=== PATIENT | male | born 1990 | race Hispanic/Latino ===

== ENCOUNTER 2019-07-02 22:18 | Emergency (ER) | payer SELFPAY ==
[~2019-07-02] VITALS: Ht 165.1 cm; Wt 107.2 kg
[~2019-07-02 22:18] MED LIST: CEPHALEXIN500 M1 PO; KEFLEX500 M1 PO; MOTRIN400 MG PO; NO HOME MEDS; ONDANSETRON4 MG PO; OXYCODONE5 MG PO
[2019-07-02 23:02] LABS: HEMATOCRIT 42.6 % (39.0-50.0); HEMOGLOBIN 14.7 g/dl (14.0-18.0); IMMATURE GRANULOCYTES 0.3 % (0.0-5.0); MEAN CELL VOLUME 88.6 fL CALC (80.0-100.0); MEAN CORPUSCULAR HGB 30.6 pG CALC (26.0-32.0); MEAN CORPUSCULAR HGB CONC 34.5 g/L CALC (32.0-36.0); NEUT# 3.15 thou/uL (1.82-7.42); RED BLOOD COUNT 4.81 mill/uL (4.70-6.10); RED CELL DISTRI WIDTH 12.5 % (11.5-15.5)
[2019-07-02 23:03] LABS: URINE BILIRUBIN - DIPSTICK NEGATIVE (NEGATIVE); URINE BLOOD DIPSTICK NEGATIVE (NEGATIVE); URINE COLOR YELLOW; URINE GLUCOSE - DIPSTICK NEGATIVE (NEGATIVE); URINE KETONE NEGATIVE (NEGATIVE); URINE LEUK ESTERASE NEGATIVE (NEGATIVE); URINE NITRITE - DIPSTICK NEGATIVE (Negative); URINE PROTEIN - DIPSTICK NEGATIVE (NEG-TRACE); URINE UROBILINOGEN - DIPSTICK 0.2 E.U./dL (0.2)
[2019-07-02 23:21] LABS: ALBUMIN 4.8 g/dL (3.2-5.0); ALKALINE PHOSPHATASE 61 u/l (38-126); AMYLASE 61 u/l (30-110); ANION GAP 14 (6-22 (CALC)); BILIRUBIN, TOTAL 0.8 mg/dL (0.0-1.4); BUN 19 mg/dL (9-20); BUN/CREATININE RATIO 21 (12-20 (CALC)); CARBON DIOXIDE 27 mmol/l (22-30); CHLORIDE 102 mmol/l (95-108); CREATININE 0.9 mg/dL (0.7-1.3); GFR > 60 ML/MIN (>=60 (CALC)); GFR FOR AFR.AMER. > 60 ML/MIN (>=60 (CALC)); LIPASE 176 u/l (23-300); POTASSIUM 3.9 mmol/l (3.5-5.1); SGOT/AST 40 u/l (17-59); SODIUM 138 mmol/l (137-146); TOTAL PROTEIN 7.7 g/dL (6.3-8.2)
[2019-07-03] MEDS ORDERED: METRONIDAZOL500 MG PO (01:15)
[2019-07-03] MEDS ORDERED: CIPROFLOXACN500 MG PO (01:15)
[2019-07-03 01:45] VITALS: BP 121/65
== END 2019-07-03 01:45 | disposition home or self-care (01) | DRG 392 ==
LOC: ED 22:18
PROVIDERS: Family Medicine
DX: K57.32 Diverticulitis of large intestine without perforation or abscess without bleeding (principal)

== ENCOUNTER 2022-01-24 09:47 | Emergency (ER) | payer SELFPAY ==
[~2022-01-24] VITALS: Ht 165.1 cm; Wt 80.0 kg
[~2022-01-24 09:47] MED LIST changes: +CIPROFLOXACN500 MG PO; +METRONIDAZOL500 MG PO
[2022-01-24 09:56] VITALS: BP 158/92
[2022-01-24 10:00] VITALS: BP 165/108
[2022-01-24 10:04] VITALS: BP 165/108
[2022-01-24] MEDS ORDERED: BACTRIM DS1 TAB PO (10:09)
[2022-01-24] MEDS ORDERED: CEPHALEXIN500 M1 PO (10:09)
== END 2022-01-24 10:15 | disposition home or self-care (01) | DRG 603 ==
LOC: ED 09:47
DX: L03.211 Cellulitis of face (principal)